=== PATIENT | male | born 1965 | race Hispanic/Latino ===

== ENCOUNTER 2020-09-24 15:04 | Inpatient (IN) | payer OTHER ==
[~2020-09-24] VITALS: Ht 172.7 cm; Wt 85.3 kg
[2020-09-24] MEDS ORDERED: PANTOPRAZOLE 40 MG 10ML VIAL IV STA (15:18)
[2020-09-24] MEDS ORDERED: ONDANSETRON HCL INJ 2MG/ML 2ML 2 MG/ML VIAL IV STA (15:18)
[2020-09-24] MEDS ORDERED: SODIUM CHLORIDE 0.9% 1000ML 1,000 ML IV STA (15:18)
[2020-09-24 15:28] LABS: HEMATOCRIT 47.1 % (38.2-49.6); HEMOGLOBIN 16.3 g/dL (14.0-18.0); LYMPHOCYTES # (AUTO) 0.9 (1.0-3.2); LYMPHOCYTES % 27.8 % (18.0-39.1); MEAN CORPUSCULAR HEMOGLOBIN 28.7 pg (28-32); MEAN CORPUSCULAR HGB CONC 34.6 g/dL (31-35); MEAN CORPUSCULAR VOLUME 82.9 fL (81-99); MONOCYTES # (AUTO) 0.2 (0.2-0.8); MONOCYTES % 7.2 % (4.4-11.3); NEUTROPHILS # (AUTO) 2.2 (2.1-6.9); NEUTROPHILS % 64.7 % (38.7-80.0); PLATELET COUNT 160 x10e3/uL (140-360); RED BLOOD COUNT 5.68 x10e6/uL (4.3-5.7)
[2020-09-24] MEDS ORDERED: ACETAMINOPHEN 325 MG TAB PO ONE (15:30)
[2020-09-24] MEDS ORDERED: ZINC SULFATE 220 MG CAP ONE (15:32)
[2020-09-24] MEDS ORDERED: CHOLECALCIFEROL 1,000 UNIT TAB ONE (15:32)
[2020-09-24] MEDS ORDERED: ASCORBIC ACID 500 MG TAB ONE (15:32)
[2020-09-24 15:33] LABS: INR 0.88; PROTHROMBIN TIME 12.4 seconds (11.9-14.5)
[2020-09-24] MEDS ORDERED: CEFTRIAXONE SOD 1 GM VIAL ONE (15:33)
[2020-09-24] MEDS ORDERED: AZITHROMYCIN 500MG/NS 250 ML 250 ML ONE (15:33)
[2020-09-24] MEDS ORDERED: SODIUM CHLORIDE 0.9% 1000ML 1,000 ML ONE (15:33)
[2020-09-24 15:34] LABS: PARTIAL THROMBOPLASTIN TIME 30.4 seconds (23.8-35.5)
[2020-09-24 15:40] LABS: ALANINE AMINOTRANSFERASE 23 IU/L (0-55); ALBUMIN 3.8 g/dL (3.5-5.0); ALBUMIN/GLOBULIN RATIO 1.1 (0.8-2.0); ALKALINE PHOSPHATASE 61 IU/L (40-150); ANION GAP 16.4 mmol/L (8-16); BLOOD UREA NITROGEN 12 mg/dL (7-26); BUN/CREATININE RATIO 11 (6-25); CALCIUM 8.3 mg/dL (8.4-10.2); CARBON DIOXIDE 28 mmol/L (22-29); CHLORIDE 96 mmol/L (98-107); CREATINE KINASE 180 IU/L (30-200); CREATININE, SERUM 1.09 mg/dL (0.72-1.25); EST GLOMERULAR FILTRATION RATE > 60 ML/MIN (60-); GLUCOSE 105 mg/dL (74-118); MAGNESIUM 2.1 MG/DL (1.3-2.1); POTASSIUM 3.4 mmol/L (3.5-5.1); SODIUM 137 mmol/L (136-145)
[2020-09-24] MEDS ORDERED: AZITHROMYCIN 500MG/NS 250 ML 250 ML IV STA (15:48)
[2020-09-24] MEDS: ZINC SULFATE 220 MG CAP PO SCH (15:55)
[2020-09-24] MEDS: ASCORBIC ACID 500 MG TAB PO SCH ×2 (15:56→16:02)
[2020-09-24] MEDS: CHOLECALCIFEROL 1,000 UNIT TAB PO SCH (15:56)
[2020-09-24] MEDS ORDERED: ASCORBIC ACID 500 MG TAB PO SCH (16:00)
[2020-09-24] MEDS ORDERED: CHOLECALCIFEROL 1,000 UNIT TAB PO SCH (16:00)
[2020-09-24] MEDS ORDERED: CEFTRIAXONE SOD 1 GM 50 ML IV ONE (16:00)
[2020-09-24] MEDS ORDERED: ZINC SULFATE 220 MG CAP PO SCH (16:00)
[2020-09-24] MEDS ORDERED: LOSARTAN POTASS25 MG (16:13)
[2020-09-24] MEDS ORDERED: DEXAMETHASONE4 MG (16:13)
[2020-09-24] MEDS ORDERED: AZITHROMYCIN250 MG (16:13)
[2020-09-24] MEDS ORDERED: BROMPHENIR-PSE118 ML (16:13)
[2020-09-24] MEDS ORDERED: CEFTRIAXONE SOD 1 GM in SODIUM CHLORIDE 0.9% 50ML 50 ML IV ONE (16:15)
[2020-09-24] MEDS: FAMOTIDINE 20 MG/2 ML VIAL IV SCH (17:12)
[2020-09-24] MEDS ORDERED: ACETAMINOPHEN 325 MG TAB PO PRN (17:15)
[2020-09-24] MEDS ORDERED: ONDANSETRON HCL INJ 2MG/ML 2ML 2 MG/ML VIAL IV PRN (17:15)
[2020-09-24 20:05] VITALS: BP 111/75
[2020-09-24 20:15] VITALS: BP 111/75
[2020-09-24 20:17] VITALS: BP 111/75
[2020-09-24] MEDS ORDERED: LOSARTAN POTASS25 MG PO (21:43)
[2020-09-24 23:28] LABS: CREATINE KINASE 150 IU/L (30-200)
[2020-09-25] VITALS (7 sets, daily range): BP systolic 104–116; BP diastolic 74–88
[2020-09-25] MEDS: FAMOTIDINE 20 MG/2 ML VIAL IV SCH ×2 (05:36→16:02)
[2020-09-25 05:40] LABS: HEMATOCRIT 39.5 % (38.2-49.6); HEMOGLOBIN 14.1 g/dL (14.0-18.0); LYMPHOCYTES # (AUTO) 0.6 (1.0-3.2); LYMPHOCYTES % 21.3 % (18.0-39.1); MEAN CORPUSCULAR HEMOGLOBIN 31.1 pg (28-32); MEAN CORPUSCULAR HGB CONC 35.7 g/dL (31-35); MEAN CORPUSCULAR VOLUME 87.2 fL (81-99); MONOCYTES # (AUTO) 0.2 (0.2-0.8); MONOCYTES % 8.4 % (4.4-11.3); NEUTROPHILS # (AUTO) 1.8 (2.1-6.9); NEUTROPHILS % 69.5 % (38.7-80.0); PLATELET COUNT 112 x10e3/uL (140-360); RED BLOOD COUNT 4.53 x10e6/uL (4.3-5.7); RED CELL DISTRIBUTION WIDTH 13.4 % (11.7-14.4)
[2020-09-25 06:07] LABS: ALANINE AMINOTRANSFERASE 22 IU/L (0-55); ALBUMIN 3.2 g/dL (3.5-5.0); ALBUMIN/GLOBULIN RATIO 1.1 (0.8-2.0); ALKALINE PHOSPHATASE 52 IU/L (40-150); ANION GAP 12.6 mmol/L (8-16); BLOOD UREA NITROGEN 12 mg/dL (7-26); BUN/CREATININE RATIO 12 (6-25); CALCIUM 7.5 mg/dL (8.4-10.2); CARBON DIOXIDE 27 mmol/L (22-29); CHLORIDE 99 mmol/L (98-107); CREATININE, SERUM 1.01 mg/dL (0.72-1.25); EST GLOMERULAR FILTRATION RATE > 60 ML/MIN (60-); GLUCOSE 88 mg/dL (74-118); POTASSIUM 3.6 mmol/L (3.5-5.1); SODIUM 135 mmol/L (136-145)
[2020-09-25] MEDS ORDERED: SODIUM CHLORIDE 0.9% 250ML 250 ML ONE (07:20)
[2020-09-25 08:05] LABS: CREATINE KINASE 127 IU/L (30-200)
[2020-09-25] MEDS ORDERED: ZINC SULFATE 220 MG CAP PO SCH (09:00)
[2020-09-25] MEDS ORDERED: CHOLECALCIFEROL 400 UNIT TAB PO SCH (09:00)
[2020-09-25] MEDS ORDERED: ASCORBIC ACID 500 MG TAB PO SCH (09:00)
[2020-09-25] MEDS: AZITHROMYCIN 500MG/NS 250 ML 250 ML IV SCH (09:14)
[2020-09-25] MEDS: ZINC SULFATE 220 MG CAP PO SCH (09:14)
[2020-09-25] MEDS: ASCORBIC ACID 500 MG TAB PO SCH ×2 (09:14→16:02)
[2020-09-25] MEDS: CHOLECALCIFEROL 1,000 UNIT TAB PO SCH (09:14)
[2020-09-25] MEDS ORDERED: CEFTRIAXONE SOD 1 GM VIAL ONE (09:24)
[2020-09-25] MEDS ORDERED: SODIUM CHLORIDE 0.9% 0 ML ONE (09:25)
[2020-09-25] MEDS ORDERED: SODIUM CHLORIDE 0.9% 50ML 50 ML ONE (09:27)
[2020-09-25] MEDS ORDERED: ACETAMINOPHEN 325 MG TAB PO PRN (11:00)
[2020-09-25] MEDS: CEFTRIAXONE SOD 1 GM in SODIUM CHLORIDE 0.9% 50ML 50 ML IV SCH (11:03)
[2020-09-25] MEDS ORDERED: REMDESIVIR 200MG/NS 100ML 200 MG in SODIUM CHLORIDE 0.9% 100 ML 100 ML IV ONE (12:00)
[2020-09-25 16:00] LABS: CREATINE KINASE 113 IU/L (30-200)
[2020-09-25] MEDS: DEXAMETHASONE SOD PHOS INJ 4 MG/ML VIAL IV SCH (16:02)
[2020-09-25] MEDS: GUAIFENESIN/DEXTROMETHORPHAN LIQD 5 ML UDC NG PRN (19:52)
[2020-09-25] MEDS ORDERED: ZOLPIDEM TARTRATE 5 MG TAB PO PRN (21:00)
[2020-09-26] VITALS (7 sets, daily range): BP systolic 97–120; BP diastolic 71–86
[2020-09-26] MEDS: GUAIFENESIN/DEXTROMETHORPHAN LIQD 5 ML UDC NG PRN (03:30)
[2020-09-26] MEDS: FAMOTIDINE 20 MG/2 ML VIAL IV SCH ×2 (04:15→17:08)
[2020-09-26 05:59] LABS: HEMATOCRIT 40.3 % (38.2-49.6); HEMOGLOBIN 14.2 g/dL (14.0-18.0); LYMPHOCYTES # (AUTO) 0.3 (1.0-3.2); LYMPHOCYTES % 11.5 % (18.0-39.1); MEAN CORPUSCULAR HEMOGLOBIN 29.1 pg (28-32); MEAN CORPUSCULAR HGB CONC 35.2 g/dL (31-35); MEAN CORPUSCULAR VOLUME 82.6 fL (81-99); MONOCYTES # (AUTO) 0.2 (0.2-0.8); MONOCYTES % 6.7 % (4.4-11.3); NEUTROPHILS # (AUTO) 2.1 (2.1-6.9); NEUTROPHILS % 81.4 % (38.7-80.0); PLATELET COUNT 135 x10e3/uL (140-360); RED BLOOD COUNT 4.88 x10e6/uL (4.3-5.7); RED CELL DISTRIBUTION WIDTH 12.7 % (11.7-14.4)
[2020-09-26 06:26] LABS: ALANINE AMINOTRANSFERASE 24 IU/L (0-55); ALBUMIN 3.2 g/dL (3.5-5.0); ALBUMIN/GLOBULIN RATIO 0.9 (0.8-2.0); ALKALINE PHOSPHATASE 53 IU/L (40-150); ANION GAP 15.7 mmol/L (8-16); BLOOD UREA NITROGEN 15 mg/dL (7-26); BUN/CREATININE RATIO 19 (6-25); CALCIUM 7.9 mg/dL (8.4-10.2); CARBON DIOXIDE 24 mmol/L (22-29); CHLORIDE 99 mmol/L (98-107); CREATININE, SERUM 0.81 mg/dL (0.72-1.25); EST GLOMERULAR FILTRATION RATE > 60 ML/MIN (60-); GLUCOSE 119 mg/dL (74-118); POTASSIUM 3.7 mmol/L (3.5-5.1); SODIUM 135 mmol/L (136-145)
[2020-09-26 07:46] LABS: BAND NEUTROPHILS % (MANUAL) 1 %; LYMPHOCYTES % (MANUAL) 8 % (19-48); MONOCYTES % (MANUAL) 5 % (3.4-9.0); NEUTROPHILS % (MANUAL) 82 % (40-74)
[2020-09-26 07:47] LABS: PLATELET ESTIMATE SLIGHTLY DECREASED; PLATELET MORPHOLOGY COMMENT NORMAL; RBC MORPHOLOGY COMMENT NORMAL
[2020-09-26] MEDS ORDERED: CEFTRIAXONE SOD 1 GM VIAL ONE (08:29)
[2020-09-26] MEDS ORDERED: SODIUM CHLORIDE 0.9% 50ML 50 ML ONE (08:31)
[2020-09-26] MEDS: CEFTRIAXONE SOD 1 GM in SODIUM CHLORIDE 0.9% 50ML 50 ML IV SCH (08:55)
[2020-09-26] MEDS: AZITHROMYCIN 500MG/NS 250 ML 250 ML IV SCH (09:01)
[2020-09-26] MEDS: LOSARTAN POTASSIUM 25 MG TAB PO SCH (09:02)
[2020-09-26] MEDS: CHOLECALCIFEROL 1,000 UNIT TAB PO SCH (09:03)
[2020-09-26] MEDS: ASCORBIC ACID 500 MG TAB PO SCH ×2 (09:03→17:07)
[2020-09-26] MEDS: ZINC SULFATE 220 MG CAP PO SCH (09:03)
[2020-09-26] MEDS: REMDESIVIR 100MG/NS 100ML 100 MG IV SCH (14:52)
[2020-09-26] MEDS: DEXAMETHASONE SOD PHOS INJ 4 MG/ML VIAL IV SCH (17:07)
[2020-09-26] MEDS: FONDAPARINUX SODIUM 5 MG/0.4 ML SYRINGE SQ SCH (17:22)
[2020-09-27] VITALS (8 sets, daily range): BP systolic 96–115; BP diastolic 63–79
[2020-09-27] MEDS: FAMOTIDINE 20 MG/2 ML VIAL IV SCH ×2 (04:14→17:25)
[2020-09-27] MEDS ORDERED: CEFTRIAXONE SOD 1 GM VIAL ONE (08:14)
[2020-09-27] MEDS ORDERED: SODIUM CHLORIDE 0.9% 50ML 50 ML ONE (08:14)
[2020-09-27] MEDS: CEFTRIAXONE SOD 1 GM in SODIUM CHLORIDE 0.9% 50ML 50 ML IV SCH (09:05)
[2020-09-27] MEDS: AZITHROMYCIN 500MG/NS 250 ML 250 ML IV SCH (09:05)
[2020-09-27] MEDS: ZINC SULFATE 220 MG CAP PO SCH (09:06)
[2020-09-27] MEDS: CHOLECALCIFEROL 1,000 UNIT TAB PO SCH (09:06)
[2020-09-27] MEDS: ASCORBIC ACID 500 MG TAB PO SCH ×2 (09:06→17:25)
[2020-09-27] MEDS: LOSARTAN POTASSIUM 25 MG TAB PO SCH (12:44)
[2020-09-27] MEDS: REMDESIVIR 100MG/NS 100ML 100 MG IV SCH (12:55)
[2020-09-27] MEDS: FONDAPARINUX SODIUM 5 MG/0.4 ML SYRINGE SQ SCH (17:25)
[2020-09-27] MEDS: DEXAMETHASONE SOD PHOS INJ 4 MG/ML VIAL IV SCH (17:25)
[2020-09-28] VITALS (8 sets, daily range): BP systolic 107–113; BP diastolic 66–79
[2020-09-28] MEDS: FAMOTIDINE 20 MG/2 ML VIAL IV SCH ×2 (05:15→18:18)
[2020-09-28] MEDS ORDERED: SODIUM CHLORIDE 0.9% 50ML 50 ML ONE (09:11)
[2020-09-28] MEDS ORDERED: CEFTRIAXONE SOD 1 GM VIAL ONE (09:11)
[2020-09-28] MEDS: ZINC SULFATE 220 MG CAP PO SCH (09:43)
[2020-09-28] MEDS: CEFTRIAXONE SOD 1 GM in SODIUM CHLORIDE 0.9% 50ML 50 ML IV SCH (09:43)
[2020-09-28] MEDS: AZITHROMYCIN 500MG/NS 250 ML 250 ML IV SCH (09:43)
[2020-09-28] MEDS: ASCORBIC ACID 500 MG TAB PO SCH ×2 (09:43→18:18)
[2020-09-28] MEDS: LOSARTAN POTASSIUM 25 MG TAB PO SCH (09:43)
[2020-09-28] MEDS: CHOLECALCIFEROL 1,000 UNIT TAB PO SCH (09:43)
[2020-09-28] MEDS: REMDESIVIR 100MG/NS 100ML 100 MG IV SCH (12:15)
[2020-09-28] MEDS ORDERED: ONDANSETRON HCL 4 MG ORAL DISINTEGRATING TAB PO PRN (13:00)
[2020-09-28] MEDS: FONDAPARINUX SODIUM 5 MG/0.4 ML SYRINGE SQ SCH (18:18)
[2020-09-28] MEDS: DEXAMETHASONE SOD PHOS INJ 4 MG/ML VIAL IV SCH (18:18)
[2020-09-29 00:37] VITALS: BP 121/74
[2020-09-29 05:39] VITALS: BP 110/69
[2020-09-29] MEDS: FAMOTIDINE 20 MG/2 ML VIAL IV SCH (06:43)
[2020-09-29 08:18] VITALS: BP 110/69
[2020-09-29 08:43] VITALS: BP 109/78
[2020-09-29] MEDS ORDERED: CEFTRIAXONE SOD 1 GM VIAL ONE (08:44)
[2020-09-29] MEDS ORDERED: SODIUM CHLORIDE 0.9% 50ML 50 ML ONE (08:45)
[2020-09-29] MEDS: AZITHROMYCIN 500MG/NS 250 ML 250 ML IV SCH (10:23)
[2020-09-29] MEDS: CEFTRIAXONE SOD 1 GM in SODIUM CHLORIDE 0.9% 50ML 50 ML IV SCH (10:23)
[2020-09-29] MEDS: ASCORBIC ACID 500 MG TAB PO SCH (10:23)
[2020-09-29] MEDS: ZINC SULFATE 220 MG CAP PO SCH (10:23)
[2020-09-29] MEDS: CHOLECALCIFEROL 1,000 UNIT TAB PO SCH (10:23)
[2020-09-29] MEDS: LOSARTAN POTASSIUM 25 MG TAB PO SCH (10:25)
[2020-09-29] MEDS: REMDESIVIR 100MG/NS 100ML 100 MG IV SCH (12:20)
[2020-09-29 12:27] VITALS: BP 112/76
== END 2020-09-29 15:42 | disposition home or self-care (01) | DRG 177 ==
LOC: ER 15:07 → ERHOLD 17:10 → MED/SURG3 20:00
PROC: 8E0ZXY6 Isolation (ICD-10-PCS; principal; 2020-09-24)
PROC: XW033E5 Introduction of Remdesivir Anti-infective into Peripheral Vein, Percutaneous Approach, New Technology Group 5 (ICD-10-PCS; 2020-09-25)
DX: U07.1 COVID-19 (principal); J12.82 Pneumonia due to coronavirus disease 2019; J96.01 Acute respiratory failure with hypoxia; J18.8 Other pneumonia, unspecified organism; E87.1 Hypo-osmolality and hyponatremia; I10 Essential (primary) hypertension; K21.9 Gastro-esophageal reflux disease without esophagitis; D69.6 Thrombocytopenia, unspecified; E87.6 Hypokalemia
CPT/HCPCS: 36415; 71045; 71046; 80053; 82550; 82553; 82948; 83735; 83880; 84484; 85025; 85610; 85730; 87040; 93005; 99284; J0456; J0696; J1100; J2405; J7030; J7050; U0002

== ENCOUNTER 2020-10-04 16:31 | Emergency (ER) | payer OTHER ==
[~2020-10-04] VITALS: Ht 172.7 cm; Wt 85.3 kg
[~2020-10-04 16:31] MED LIST: AZITHROMYCIN250 MG; BROMPHENIR-PSE118 ML; DEXAMETHASONE4 MG; LOSARTAN POTASS25 MG; LOSARTAN POTASS25 MG PO
[2020-10-04 17:45] VITALS: BP 122/83
== END 2020-10-04 17:51 | disposition home or self-care (01) ==
LOC: ER 16:35
DX: U07.1 COVID-19 (principal); J18.9 Pneumonia, unspecified organism; R09.02 Hypoxemia; Z99.81 Dependence on supplemental oxygen; I10 Essential (primary) hypertension
CPT/HCPCS: 99284